=== PATIENT | female | born 1945 | race Caucasian/White ===

== ENCOUNTER 2021-10-04 02:43 | Inpatient (IN) | payer MEDICARE, OTHER ==
[2021-10-04] MEDS ORDERED: EPINEPHrine 1 MG/ML AMP ONE (16:40)
[2021-10-04] MEDS ORDERED: Bupivacaine 0.25% HCL 30 ML VIAL ONE (16:40)
[2021-10-04] MEDS ORDERED: PROPOFOL 0 ML ONE (17:12)
[2021-10-04] MEDS ORDERED: Fentanyl 100 MCG/2 ML VIAL ONE (17:13)
[2021-10-04] MEDS ORDERED: Acetaminophen 500 MG TAB ONE (18:11)
[2021-10-04] MEDS ORDERED: Ondansetron PF 4 MG/2 ML Vial IVP PRN (19:54)
[2021-10-04] MEDS ORDERED: hydrALAZINE 20 MG/ML VIAL SLOW IVP PRN (19:54)
[2021-10-04] MEDS ORDERED: Promethazine HCl 25 MG/ML VIAL IM PRN (19:54)
[2021-10-04] MEDS ORDERED: Dextrose 50% Abboject 50 ML SYRINGE SLOW IVP PRN (19:54)
[2021-10-04] MEDS ORDERED: Dextrose 5% in Water 1,000 ML IV PRN (19:54)
[2021-10-04] MEDS ORDERED: Famotidine/PF 20 mg/2ml Vial SLOW IVP SCH (21:45)
[2021-10-04] MEDS: D5 1/2 NS w/20 mEq KCL 1,000 ML IV SCH (22:03)
[2021-10-04] MEDS: Piperacillin/Tazobactam 3.375 GM in Sodium Chloride 0.9% 100 ML IVPB SCH (22:04)
[2021-10-04] MEDS ORDERED: Piperacillin/Tazobactam 3.375 GM in Sodium Chloride 0.9% 100 ML IVPB SCH (23:59)
[2021-10-05] MEDS: Morphine 4 MG/ML VIAL SLOW IVP PRN ×2 (02:02→10:30)
[2021-10-05 03:26] VITALS: BMI 20.9
[2021-10-05 05:46] LABS: Hemoglobin 8.1 g/dL (12.0-15.5); Mean Corpuscular HGB CONC 31.5 g/dL (32.0-36.0); Mean Corpuscular Hemoglobin 33.9 pg (27.0-33.0); Mean Corpuscular Volume 107.5 fl (81.6-98.3); Mean Platelet Volume 10.3 fl (7.4-10.4); Platelet Count 218 10x3/uL (150-450); RBC Distribution Width 14.7 % (11.5-14.5); Red Blood Cell (RBC) Count 2.39 10x6/uL (3.90-5.03); White Blood Cell (WBC) Count 8.4 10x3/uL (3.5-10.5)
[2021-10-05 05:54] LABS: Anion Gap 10 mmol/L (10-20); BUN (Urea Nitrogen) 13 mg/dL (9.8-20.1); Calc. Creatinine Clearance 63 mL/min (70-130); Carbon Dioxide 28 mmol/L (23-31); Chloride 101 mmol/L (98-107); Glucose 122 mg/dL (83-110); Potassium 3.4 mmol/L (3.5-5.1); Sodium 136 mmol/L (136-145)
[2021-10-05] MEDS: Acetaminophen 325 MG TAB PO PRN ×2 (05:58→14:45)
[2021-10-05 06:04] LABS: MDiff Complete? YES
[2021-10-05] MEDS: Piperacillin/Tazobactam 3.375 GM in Sodium Chloride 0.9% 100 ML IVPB SCH ×3 (06:07→22:17)
[2021-10-05 06:20] LABS: Band 6 % (5-11); Lymphocytes 16 % (21-51); Monocytes 18 % (0-10); Neutrophil 57 % (42-75); Reactive Lymphocytes 3 % (0-10)
[2021-10-05 06:24] LABS: Macrocytosis SLIGHT = 6-15 cells (100X) (0-5/hpf); Ovalocytes SLIGHT = 2-5 cells (100X) (0-1/hpf); Platelet Morphology Comment Appears Adequate; Schistocytes SLIGHT = 2-5 cells (100X) (0-1/hpf)
[2021-10-05] MEDS: Enoxaparin Sodium 40 MG/0.4 ML SYRINGE SC SCH (09:00)
[2021-10-05] MEDS ORDERED: Losartan Potassium 50 MG TAB PO SCH ×2 (09:00→09:45)
[2021-10-05] MEDS: Hydrochlorothiazide 25 MG TAB PO SCH (09:02)
[2021-10-05] MEDS: PARoxetine 20 MG TAB PO SCH (09:02)
[2021-10-05] MEDS: Famotidine/PF 20 mg/2ml Vial SLOW IVP SCH ×2 (09:03→22:18)
[2021-10-05] MEDS: D5 1/2 NS w/20 mEq KCL 1,000 ML IV SCH (10:48)
[2021-10-05] MEDS: Famotidine 20 MG TAB PO SCH ×3 (14:48→22:17)
[2021-10-06] MEDS: D5 1/2 NS w/20 mEq KCL 1,000 ML IV SCH ×2 (00:50→12:00)
[2021-10-06] MEDS: Acetaminophen 325 MG TAB PO PRN (01:23)
[2021-10-06] MEDS: Morphine 4 MG/ML VIAL SLOW IVP PRN ×3 (01:24→15:00)
[2021-10-06] MEDS: Piperacillin/Tazobactam 3.375 GM in Sodium Chloride 0.9% 100 ML IVPB SCH ×3 (05:25→22:22)
[2021-10-06] MEDS ORDERED: Bupivacaine 0.25% HCL 30 ML VIAL ONE (08:10)
[2021-10-06] MEDS ORDERED: EPINEPHrine 1 MG/ML AMP ONE (08:11)
[2021-10-06] MEDS ORDERED: Fentanyl 100 MCG/2 ML VIAL ONE (09:57)
[2021-10-06] MEDS: Enoxaparin Sodium 40 MG/0.4 ML SYRINGE SC SCH (10:21)
[2021-10-06] MEDS: Famotidine 20 MG TAB PO SCH ×2 (15:10→21:41)
[2021-10-06] MEDS: PARoxetine 20 MG TAB PO SCH (15:10)
[2021-10-06] MEDS: Hydrochlorothiazide 25 MG TAB PO SCH (15:10)
[2021-10-06] MEDS: Losartan Potassium 50 MG TAB PO SCH (15:10)
[2021-10-06] MEDS: Famotidine/PF 20 mg/2ml Vial SLOW IVP SCH ×2 (15:10→21:40)
[2021-10-06] MEDS: traMADol HCl 50 MG TAB PO PRN ×2 (16:51→22:54)
[2021-10-07] MEDS: Piperacillin/Tazobactam 3.375 GM in Sodium Chloride 0.9% 100 ML IVPB SCH (06:21)
[2021-10-07] MEDS: D5 1/2 NS w/20 mEq KCL 1,000 ML IV SCH (07:11)
[2021-10-07] MEDS: Enoxaparin Sodium 40 MG/0.4 ML SYRINGE SC SCH (08:58)
[2021-10-07] MEDS: Famotidine/PF 20 mg/2ml Vial SLOW IVP SCH (08:58)
[2021-10-07 08:59] VITALS: BP 140/64; TEMP 97.7
[2021-10-07] MEDS: PARoxetine 20 MG TAB PO SCH (08:59)
[2021-10-07] MEDS: Hydrochlorothiazide 25 MG TAB PO SCH (08:59)
[2021-10-07] MEDS ORDERED: Losartan Potassium 50 MG TAB PO SCH (09:00)
[2021-10-07] MEDS: Famotidine 20 MG TAB PO SCH (09:01)
[2021-10-07] MEDS: Losartan Potassium 50 MG TAB PO SCH (09:02)
== END 2021-10-07 12:15 | disposition home or self-care (01) | DRG 358 ==
LOC: CSHSDC 02:43 → CSHTELE 16:12
PROVIDERS: ADMIT Surgery; ATTEND Surgery
PROC: 0W9G40Z Drainage of Peritoneal Cavity with Drainage Device, Percutaneous Endoscopic Approach (ICD-10-PCS; principal; 2021-10-06)
DX: K35.33 Acute appendicitis with perforation, localized peritonitis, and gangrene, with abscess (principal); I10 Essential (primary) hypertension; E78.5 Hyperlipidemia, unspecified; K38.8 Other specified diseases of appendix; F32.A Depression, unspecified; Z90.710 Acquired absence of both cervix and uterus; Z98.890 Other specified postprocedural states
CPT/HCPCS: 80048; 85025; 94760; J0171; J1650; J2270; J2543; J2704; J3010; J3480; J3490; S0020; S0028